=== PATIENT | male | born 1965 | race African-American/Black ===

== ENCOUNTER → 2019-05-02 | Outpatient (CLI) | payer OTHER, MEDICAID ==
[~2019-05-02] MED LIST: AMITRIPTYLINE H10 M3 PO; FLEXERIL PO; NEURONTIN 300300 M1 PO; NEURONTIN 300M300 M2 PO; PERCOCET 7.5-31 EACH PO; PERCOCET PO
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
== END ==
LOC: M.PC 08:20
DX: M54.6 Pain in thoracic spine (principal); M54.16 Radiculopathy, lumbar region; M54.12 Radiculopathy, cervical region; Z79.899 Other long term (current) drug therapy

== ENCOUNTER → 2019-05-19 | Outpatient (CLI) | payer OTHER, MEDICAID ==
--- NOTE | 2019-05-19 18:09 | CARDNUC ---
[place] [address] CARDIAC NUCLEAR IMAGING REPORT Name: ARON GONZALEZ Room: [facility]#: [id number] Admission: 05/19/19 Attend Phys: Cal Ugalde, Discharge: Date of : 67 Date of Service: 05/19/19 1809 Report #: [id number] THIS REPORT FOR: //name// APPROVED REPORT Study performed: 05/19/2019 09:34:51 Exam: Nuclear Stress Test Indication: Chest pain Patient Location: Out-Patient Stress Tech: Cheyanne Sorensen Stress Nurse: Tara Coon RN Ht: 5 ft 7 in Wt: 165 lbs BSA: 1.86 m2 BMI: 25.84 Medical History Medical History: none Medications: none Allergies: nkda Cardiac Risk Factors: Age, Current Smoker Previous Cardiac Procedures: none Exercise History: Indeterminate Stress Test Details Stress Test: Pharmacologic stress testing performed using 0.4 mg of regadenoson per 5 mL given IV over 10 seconds. Reason for pharmacologic stress test: physical limitation. HR Resting HR: 63 bpm Max Heart Rate (APMHR): 168 bpm Max HR Achieved: 124 bpm Target HR (85% APMHR): 142 bpm % of APMHR: 73 Recovery HR: 94 bpm BP Resting BP: 106/80 mmHg Max BP: 135/94 mmHg ECG Resting ECG: Sinus Rhythm Stress ECG: Sinus Tachycardia ST Change: None Arrhythmia: None Recovery ECG: [place] [address] CARDIAC NUCLEAR IMAGING REPORT Name: ARON GONZALEZ Room: [facility]#: [id number] Admission: 05/19/19 Attend Phys: Cal Ugalde, Discharge: Date of : 67 Date of Service: 05/19/19 1809 Report #: [id number] Change: None Recovery Arrhythmia: None Clinical Reason for Termination: Completed protocol Exercise duration: 0 min sec Exercise capacity: 1 METs The patient tolerated Lexiscan infusion without significant symptoms. Nurse Comments pt has chronic back issues and walks with a cane, unable to walk on te[place]mill Stress ECG Conclusion The baseline 12-lead EKG showed sinus rhythm without significant ST or T-wave abnormality. EKGs obtained during and post Lexiscan infusion showed sinus rhythm and sinus tachycardia with no significant ST or T wave changes when compared to baseline. NM EXAM: Myocardial Perfusion REST/STRESS Resting Data Rest SPECT myocardial perfusion imaging was performed in supine position 30 minutes following the intravenous injection of 10.6 mCi of Tc-99m Sestamibi. Time of rest injection: 8:05 The images were gated to evaluate regional wall motion and calculate left ventricular ejection fraction. Administration Route: IV Administration Site: Right AC Pharmacologic Stress Pharmacologic stress test was performed by injecting Regadenoson 0.4 mg IV push followed by the intravenous injection of 34.4 mCi of Tc-99m Sestamibi. Time of stress injection: 9:35 Administration Route: IV Administration Site: Right AC Heart Rate at time of stress injection: 120 bpm. Gated Stress SPECT was performed 45 minutes after stress injection. The images were gated to evaluate regional wall motion and calculate left ventricular ejection fraction. [place] [address] CARDIAC NUCLEAR IMAGING REPORT Name: ARON GONZALEZ [place] Room: [facility]#: [id number] Admission: 05/19/19 Attend Phys: Cal Ugalde, Discharge: Date of : 67 Date of Service: 05/19/19 1809 Report #: [id number] Study Quality Study: Good Artifact: No artifact Study Data At rest, the left ventricular ejection fraction was 60%.. Post stress, the left ventricular ejection was 57%.. TID = 1.12. Perfusion Myocardial perfusion images showed no defect to suggest infarct or ischemia. Wall Motion Gated study showed normal left ventricular wall motion. Nuclear Conclusion ECG Findings: negative for ischemia Clinical Findings: negative for ischemia Nuclear Findings: negative for ischemia Exercise Capacity: not assessed Left Ventricular Function: normal Risk Study: low Myocardial perfusion images showed no defect to suggest infarct or ischemia. Left ventricular systolic function appears normal. Studies. This is a low risk study. <Conclusion> The baseline 12-lead EKG showed sinus rhythm without significant ST or T-wave abnormality. EKGs obtained during and post Lexiscan infusion showed sinus rhythm and sinus tachycardia with no significant ST or T wave changes when compared to baseline. <ELECTRONICALLY SIGNED> By: Nacho Corbin MD, FACC 05/19/191808 08 08 Nacho Corbin MD, FACC /INF
== END ==
LOC: M.NUC 07:47
DX: R07.82 Intercostal pain (principal); R10.13 Epigastric pain; G89.29 Other chronic pain; M54.41 Lumbago with sciatica, right side; M54.42 Lumbago with sciatica, left side

== ENCOUNTER → 2019-06-20 | Outpatient (CLI) | payer OTHER ==
[~2019-06-20] MED LIST changes: +AMITRIPTYLINE H25 M2 PO
--- NOTE | ~2019-06-20 | PAINCON ---
[facility] [address] [place] [address] PAIN MANAGEMENT CONSULTATION Name: [facility] Art.#: [id number] Admission: 06/20/19 Attend Phys: Lory Salgado MD Discharge: Date of : 67 Report #: [id number] THIS REPORT FOR: //name// CC: Cal Salgado DATE OF SERVICE: 06/20/2019 PRIMARY CARE PHYSICIAN: Cal Ugalde M.D. CHIEF COMPLAINT: Low back and hips, left leg and neck are still hurting. HISTORY OF PRESENT ILLNESS: The amitriptyline helps to relax and take some of the pressure off. He is sleeping better. Denies any complication from the medication. He is still having some problems with constipation. He has had some problem with muscle spasms. He went to the Emergency Room on 06/03 because of muscle spasms. He was provided Flexeril. Notes that his pain is worse with cold weather. Walking, standing, climbing stairs are somewhat problematic. At this point, he would like to continue with his medications. ALLERGIES: No known drug allergies. CURRENT MEDICATIONS: Flexeril 10 mg 1 p.o., gabapentin 300 mg 1 p.o. t.i.d., oxycodone 7.5 mg 1 p.o. b.i.d. and amitriptyline 10 mg 2 tablets at bedtime. PAIN CLINIC ASSESSMENT AND PQRS: 1. Chronic history of left leg pain. The patient has had back surgery after a fall while in an elevator from 4 stories. The patient is not being treated for rheumatoid arthritis. 2. Height 5 feet 7 inches, weight 167 pounds, BMI is 26.7. 3. Blood pressure 135/89, heart rate 91, respiratory rate 16, room air saturation 98%, temperature is 98.4. 4. Pain intensity down from 10/10 to 8.5/10. 5. Fall history: The patient has not fallen in the last 3 months. 6. Blood thinner: The patient is not on a blood thinning medication. 7. Hypertension: The patient is not being treated for hypertension. 8. Opioids: The patient has been on opioid medications and has received medication from the pain clinic. 9. Risk assessment tool: Moderate for opioid use. 10. Functional assessment tool. 11. Recreational drug use: The patient denies. 12. Tobacco: The patient denies. 13. Alcohol: The patient denies use of alcoholic beverages. PHYSICAL EXAMINATION: [address] [place] [address] PAIN MANAGEMENT CONSULTATION Name: ARON GONZALEZ [facility] Room: [facility]#: [id number] Admission: 06/20/19 Attend Phys: Lory Salgado MD Discharge: Date of : 67 Report #: [id number] GENERAL: The patient is a well-developed, well-nourished black male, appears his stated age. He is alert and oriented x 3. His affect is appropriate. Speech is fluent. HEENT: Normocephalic, atraumatic. Extraocular eye muscles intact. Sclerae nonicteric, slightly reddened. NECK: Without adenopathy or JVD. Complains of pain on his left side. Carries his left arm in a somewhat dependent position. Complains of numbness and tingling involving the left thumb and index finger. HEART: Regular rate. ABDOMEN: Nontender. EXTREMITIES: Upper extremity muscle strength in the right, 5/5 and 3/5 on the left. Lower extremity muscle strength judged to be 5/5 for the major muscle groups on the right and 4- on the left side. The patient complains of left-sided numbness and tingling on the right leg and in the lumbar area in the L5-S1 dermatomal distribution. IMPRESSION: 1. Chronic pain, left thoracic area. 2. Chronic symptoms consistent with cervical radiculopathy on the left arm. 3. Lumbar radiculopathy, L5-S1 dermatomal distribution, on the left. 4. History of ulcers. The patient states that he often takes nonsteroidal anti-inflammatory medications. He has used BC powders and aspirin. RECOMMENDATIONS: We discussed treatment options with the patient. He appears to be doing better with the use of the amitriptyline. He has been taking 20 mg at bedtime. We will try and make his medication regimen a bit more simple. We will have the patient take 25 mg of amitriptyline often times, if you are able to tolerate 20 mg, 25 mg is reasonable. Hopefully, this will continue to improve his ability to rest and "take pressure off of his affected areas." We will continue with Percocet 7.5 mg 1 p.o. b.i.d. The patient will continue with gabapentin 300 mg t.i.d. He will call us if he has any problems with his medications. We discussed the problems with opioid medications. They can be helpful initially. They can become less effective as time goes on secondary to development of tolerance. The patient is aware of this. He will continue to take his medication as prescribed. He is aware that 70,000 people last year as a result of overdose on medication. The patient at this juncture is showing no signs of addiction. A script for his medications as described above has been written. He will continue with amitriptyline 25 mg at bedtime. He will use gabapentin 300 mg 1 p.o. t.i.d., the patient will take 2 tablets in the morning, 1 tablet afternoon and 1 tablet at bedtime. He will take oxycodone 7.5 mg 1 [place] [address] PAIN MANAGEMENT CONSULTATION Name: ARON GONZALEZ Room: [facility]#: [id number] Admission: 06/20/19 Attend Phys: Lory Salgado MD Discharge: Date of : 67 Report #: [id number] We would like to thank you for letting us participate in his care. We hope he continues to improve. By: [id number] [id number]. Jesus Salgado MD /nt
== END ==
LOC: M.PC 04:30
DX: M54.16 Radiculopathy, lumbar region (principal); M54.6 Pain in thoracic spine; Z79.899 Other long term (current) drug therapy

== ENCOUNTER → 2019-07-05 | Outpatient (CLI) | payer OTHER ==
[2019-07-05 15:26] LABS: CREATININE 0.9 mg/dL (0.6-1.3)
== END ==
LOC: M.LAB 14:51 → M.CT 15:30
PROVIDERS: Internal Medicine
DX: N28.1 Cyst of kidney, acquired (principal); J98.11 Atelectasis; K76.89 Other specified diseases of liver

== ENCOUNTER → 2019-09-04 | Outpatient (CLI) | payer OTHER, MEDICAID | LOC: M.CT 10:45 | DX: K57.30 Diverticulosis of large intestine without perforation or abscess without bleeding (principal) ==

== ENCOUNTER → 2019-09-19 | Outpatient (CLI) | payer OTHER, MEDICAID | LOC: M.RAD 10:18 | DX: S62.001A Unspecified fracture of navicular [scaphoid] bone of right wrist, initial encounter for closed fracture (principal); M19.041 Primary osteoarthritis, right hand; X58.XXXA Exposure to other specified factors, initial encounter; Y93.89 Activity, other specified; Y92.89 Other specified places as the place of occurrence of the external cause; Y99.8 Other external cause status ==

== ENCOUNTER → 2020-01-04 | Outpatient (CLI) | payer OTHER, MEDICAID | LOC: M.MRI 06:52 | PROVIDERS: ATTEND Internal Medicine | DX: S63.502A Unspecified sprain of left wrist, initial encounter (principal); M19.032 Primary osteoarthritis, left wrist; M25.432 Effusion, left wrist; X58.XXXA Exposure to other specified factors, initial encounter; Y93.89 Activity, other specified; Y92.89 Other specified places as the place of occurrence of the external cause; Y99.8 Other external cause status ==

== ENCOUNTER → 2020-07-05 | Outpatient (CLI) | payer OTHER, MEDICAID | LOC: M.CT 15:58 | PROVIDERS: ATTEND Registered Nurse Diabetes Educator | DX: N20.0 Calculus of kidney (principal); M54.42 Lumbago with sciatica, left side; M54.41 Lumbago with sciatica, right side; R31.9 Hematuria, unspecified; G89.29 Other chronic pain; Z87.442 Personal history of urinary calculi ==

== ENCOUNTER 2020-10-07 09:20 | Emergency (ER) | payer OTHER, MEDICAID ==
[~2020-10-07] VITALS: Ht 167.6 cm; Wt 81.7 kg
[2020-10-07] MEDS ORDERED: FLEXERIL PO (10:53)
[2020-10-07] MEDS ORDERED: PREDNISONE50 MG PO (10:53)
[2020-10-07 11:08] VITALS: BP 134/94
== END 2020-10-07 11:08 | disposition home or self-care (01) ==
LOC: M.ERS 09:20
DX: M54.31 Sciatica, right side (principal)

== ENCOUNTER 2021-03-07 09:07 | Emergency (ER) | payer OTHER, MEDICAID ==
[~2021-03-07] VITALS: Ht 170.2 cm; Wt 75.8 kg
[~2021-03-07 09:07] MED LIST changes: +PREDNISONE50 MG PO
[2021-03-07 09:47] LABS: HEMATOCRIT 40.2 % (42.0-52.0); HEMOGLOBIN 13.9 gm/dL (14.0-18.0); MCH 32.6 pg (26.0-34.0); MCHC 34.5 g/dL (28.0-37.0); MCV 94.4 fL (80.0-100.0); MPV 6.9 fl. (7.2-11.1); NUCLEATED RBCS 0 /100WBC; PLATELET COUNT* 263 thou/uL (150-400); RBC 4.26 mil/uL (4.50-6.00); RDW-CV 13.8 % (10.5-14.5); WBC 6.9 thou/uL (4.0-11.0)
[2021-03-07 10:05] LABS: ABSOLUTE LYMPHOCYTES 0.1 thou/uL (0.8-5.3); ABSOLUTE MONOCYTES 0.2 thou/uL (0.0-1.2); ABSOLUTE NEUTROPHILS 6.6 thou/uL (1.6-8.1); ANISOCYTOSIS 1+; PLATELET ESTIMATE ADEQUATE; POIKILOCYTOSIS 1+
[2021-03-07 10:07] LABS: CALCIUM 8.4 mg/dL (8.5-10.1); CREATININE 0.9 mg/dL (0.6-1.3); POTASSIUM 4.2 mmol/L (3.5-5.1)
[2021-03-07 10:12] LABS: ALBUMIN 4.1 g/dL (3.4-5.0); TOTAL BILIRUBIN 0.3 mg/dL (<0.1-1.0); TOTAL PROTEIN 7.6 g/dL (6.4-8.2)
[2021-03-07] MEDS ORDERED: TESSALON PERLE100 M1 PO (11:54)
[2021-03-07] MEDS ORDERED: ZOFRAN ODT4 MG DISSOLVE (11:54)
[2021-03-07 12:02] VITALS: BP 95/56
--- NOTE | 2021-03-07 16:33 | EKG ---
[place] [address] ELECTROCARDIOGRAM REPORT Name: ARON GONZALEZ Room: [facility]#: [id number] Admission: 03/07/21 Attend Phys: Discharge: 03/07/21 Date of : 67 Date of Service: 03/07/21916 Report #: [id number] THIS REPORT FOR: //name// [facility] ED Test Date: 2021-03-07 Test Time: 09:17:10 Pat Name: ARON GONZALEZ Department: Room: Gender: Funding Analyst: : 1965 Requested By: Germain Ham Order Number: [id number] MD: Cal Cabral Measurements Intervals Archie Rate: 77 P: 70 MA: 128 QRS: 45 QRSD: 85 T: 34 QT: 359 QTc: 407 Interpretive Statements Sinus rhythm Probable left atrial enlargement No previous ECG available for comparison Electronically Signed On 03-07-2021 16:33:43 CDT by Cal Cabral [email or web address] <ELECTRONICALLY SIGNED> By: Cal Cabral MD, [facility] 03/07/21 1633 6 6 Cal Cabral MD, FACC /EPI
== END 2021-03-07 12:03 | disposition home or self-care (01) ==
LOC: M.ERS 09:07
PROVIDERS: Emergency Medicine Emergency Medical Services
DX: U07.1 COVID-19 (principal); R11.2 Nausea with vomiting, unspecified; R19.7 Diarrhea, unspecified; Z79.899 Other long term (current) drug therapy

== ENCOUNTER 2021-05-12 10:33 | Emergency (ER) | payer OTHER, MEDICAID ==
[~2021-05-12] VITALS: Ht 170.2 cm; Wt 71.2 kg
[~2021-05-12 10:33] MED LIST changes: +TESSALON PERLE100 M1 PO; +ZOFRAN ODT4 MG DISSOLVE
[2021-05-12 12:11] VITALS: BP 126/68
== END 2021-05-12 12:11 | disposition home or self-care (01) ==
LOC: M.ERS 10:33
DX: S63.502A Unspecified sprain of left wrist, initial encounter (principal); M19.032 Primary osteoarthritis, left wrist; F17.210 Nicotine dependence, cigarettes, uncomplicated; W01.198A Fall on same level from slipping, tripping and stumbling with subsequent striking against other object, initial encounter; Y93.89 Activity, other specified; Y92.89 Other specified places as the place of occurrence of the external cause; Y99.8 Other external cause status